=== PATIENT | female | born 1990 | race Two or more races ===

== ENCOUNTER 2020-04-06 16:06 | Emergency (ER) | payer OTHER ==
[~2020-04-06] VITALS: Ht 154.9 cm; Wt 58.1 kg
== END 2020-04-06 18:43 | disposition home or self-care (01) ==
LOC: ER 16:06
DX: O98.511 Other viral diseases complicating pregnancy, first trimester (principal); B96.0 Mycoplasma pneumoniae [M. pneumoniae] as the cause of diseases classified elsewhere; Z3A.10 10 weeks gestation of pregnancy